=== PATIENT | female | born 1985 | race Caucasian/White ===

== ENCOUNTER → 2017-09-13 | Outpatient (REF) ==
[2016-04-04 12:03] VITALS: BMI 27.3
[~2017-09-13] MED LIST: IBUP800T37 PO; LOR5/325 PO
[2017-09-13 10:25] LABS: LDL CHOLESTEROL 71 mg/dl
== END ==
DX: Z02.9 Encounter for administrative examinations, unspecified (principal)

== ENCOUNTER → 2018-07-11 | Outpatient (CLI) | payer OTHER ==
[2016-04-04 12:03] VITALS: BMI 27.3
[~2018-07-11] MED LIST changes: +PREN-127 PO; +TRI40I INTRA-ART
== END ==
LOC: LAB 08:10
PROVIDERS: ATTEND Student in an Organized Health Care Education/Training Program
DX: Z34.81 Encounter for supervision of other normal pregnancy, first trimester (principal); R82.998 Other abnormal findings in urine
CPT/HCPCS: 36415; 81001; 86592; 86703; 86762; 86850; 86900; 86901; 87088; 87340

== ENCOUNTER → 2018-07-11 | Outpatient (REF) ==
[2016-04-04 12:03] VITALS: BMI 27.3
[2018-07-11 09:50] LABS: LDL CHOLESTEROL 61 mg/dl
== END ==
DX: Z02.9 Encounter for administrative examinations, unspecified (principal)

== ENCOUNTER → 2018-07-15 | Outpatient (CLI) | payer OTHER ==
[2016-04-04 12:03] VITALS: BMI 27.3
== END ==
LOC: LAB 08:35
PROVIDERS: ATTEND Student in an Organized Health Care Education/Training Program
DX: Z34.81 Encounter for supervision of other normal pregnancy, first trimester (principal)
CPT/HCPCS: 87491; 87591

== ENCOUNTER → 2018-10-03 | Outpatient (CLI) | payer OTHER ==
[2016-04-04 12:03] VITALS: BMI 27.3
--- NOTE | 2018-10-03 11:34 | RADIOLOGY IMAGING REPORT ---
FACILITY: [facility] [place] PATIENT NAME: Angela Antony : 1985 MR: [id number] V: [id number] EXAM DATE: ORDERING PHYSICIAN: MINA TERRELL TECHNOLOGIST: Location: [facility] Patient: Angela Antony : 1985 Visit/Account:[id number] Date of Sevice: 10/03/2018 EXAMINATION: Ultrasound transabdominal OB > 14 weeks with anatomic evaluation HISTORY: 20 week anatomical survey COMPARISON: None. TECHNIQUE: Transabdominal imaging was performed for assessment of the fetus and maternal pelvic structures. T ransvaginal imaging was not performed. FINDINGS: Placenta: Anterior. The distal tip of the placenta is 2.9 cm from the cervical os Uterus: Gravid, otherwise normal Cervix: Long and closed. Maternal Ovaries: Not visualized. Maternal and other adnexa findings: Not visualized Intrauterine gestations: One. presentation: Variable heart rate: Normal and regular at 140 bpm Amniotic fluid index: 11.7 cm Largest amniotic fluid pocket: 3.8 cm Gestational Parameters: BPD: 4.58 cm 19 weeks/ six days, 37% HC: 17.23 cm 19 weeks/ six days, 27% AC: 14.45 cm 19 weeks/ six days, 32% FL: 3.21 cm 20 weeks/ zero days, 37% Average ultrasound age (AUA): 20 weeks/zero days, SNEHA 02/20/2019 Estimated gestational age by LMP: 20 weeks/one days, SNEHA 02/19/2019 Estimated weight (EFW): 318 grams +/- 46 grams EFW for LMP: 31 percentile Anatomic Survey: Intracranial structures, 4-chamber heart, stomach, kidneys, urinary bladder, spine, 3-vessel cord and cord insertion are unremarkable. Two upper and two lower extremities visualized. Cardiac ventricula r outflow tracts, palate and lips are unremarkable in appearance. IMPRESSION: Single viable fetus in variable presentation with an estimated gestational age by measur ements of 20 weeks and zero days. Estimated gestational age by LMP is 20 weeks and one day. Estimated weight 318 g equivalent to the 31st percentile Report Dictated By: Vaishali Haywodo MD at 10/03/2018 11:17 AM Report E-Signed By: Vaishali Haywood MD at 10/03/2018 11:30 AM SUNDAYN:JOSE MIGUEL
== END ==
LOC: RAD 08:04
PROVIDERS: ATTEND Student in an Organized Health Care Education/Training Program
DX: Z02.9 Encounter for administrative examinations, unspecified (principal)

== ENCOUNTER → 2018-11-27 | Outpatient (CLI) | payer OTHER ==
[2016-04-04 12:03] VITALS: BMI 27.3
[2018-11-27 09:32] LABS: PLATELET COUNT, AUTOMATED 208 K/uL (150-450)
== END ==
LOC: LAB 09:21
PROVIDERS: ATTEND Student in an Organized Health Care Education/Training Program
DX: Z34.92 Encounter for supervision of normal pregnancy, unspecified, second trimester (principal)
CPT/HCPCS: 36415; 82950; 85025